=== PATIENT | female | born 1950 | race African-American/Black ===

== ENCOUNTER 2017-08-11 21:18 | Observation (INO) | payer MEDICARE, OTHER ==
[2017-08-11 22:34] LABS: CKMB 1.3 ng/mL (0-6.6); Troponin I Less than 0.010 ng/mL (< 0.028)
[2017-08-12] MEDS ORDERED: Calcium Carbonate 500 MG ChewTAB PO PRN (00:32)
[2017-08-12] MEDS ORDERED: Nitroglycerin 0.4 MG TAB (25 Tab Bottle) PO PRN (00:32)
[2017-08-12] MEDS ORDERED: Mag-Al 1200 mg/1200 mg/30 ML UDCUP PO PRN (00:32)
[2017-08-12] MEDS ORDERED: Ondansetron HCl/PF 4 MG/2 ML Vial IVP PRN (00:32)
[2017-08-12] MEDS ORDERED: Senokot 8.6 MG TAB PO PRN (00:32)
[2017-08-12] MEDS ORDERED: Ondansetron ODT 4 MG TAB PO PRN (00:32)
[2017-08-12] MEDS ORDERED: Acetaminophen 325 MG TAB PO PRN (00:32)
[2017-08-12 01:28] LABS: Troponin I Less than 0.010 ng/mL (< 0.028)
--- NOTE | 2017-08-12 01:41 | HP ---
DATE OF ADMISSION: 08/11/2017 The patient was seen and examined on 08/11/2017. CHIEF COMPLAINT: Shortness of breath. The patient is transferred from [facility] in [place]. PRIMARY CARE PHYSICIAN: Dr. Maren Stevens. PRIMARY TRIGONOMETRY TUTOR: Dr. Tang Ortiz. HISTORY OF PRESENT ILLNESS: The patient is a 67-year-old female with paroxysmal atrial fibrillation, hypertension, and heart murmur, who presented to the emergency room in [place] with shortness of shira ath that has been ongoing for last 2-3 days. The shortness of breath is progressively getting worse. It is precipitated by moderate exertion. She also is on Lasix for leg swelling mainly during eveni ngs. She denies any orthopnea or paroxysmal nocturnal dyspnea. No wheezing, chest pain, palpitation s, lightheadedness, dizziness, nausea, vomiting, diaphoresis reported. Over the past few weeks, the patient has on and off dry cough, which has more or less resolved. PAST MEDICAL HISTORY: 1. Paroxysmal atrial fibrillation secondary to Graves' disease in the past. 2. Heart murmur. 3. Hypothyroidism. PAST SURGICAL HISTORY: 1. Radioactive thyroid ablation. 2. Appendectomy. 3. Hysterectomy. 4. Tonsillectomy. ALLERGIES: Patient denies any drug allergies. CURRENT HOME MEDICATIONS: Bystolic 5 mg at bedtime, multivitamin 1 tablet daily, lisinopril 20 mg da raheel, Levothyroxine 112 mcg daily, hydralazine 25 b.i.d., Lasix 20 mg daily, calcium carbonate daily. SOCIAL HISTORY: Patient currently lives at home with her family. She denies any current use of smok ing, alcohol, or drug use. She is FULL CODE, makes her own decision with the help of her family. FAMILY HISTORY: Heart disease and diabetes on mother's side, hypertension on father's side. Dangelo cho had cardiomyopathy. REVIEW OF SYSTEMS: The following complete review of systems was negative, unless otherwise mentioned in the HPI or below: Constitutional: Weight loss or gain, ability to conduct usual activities. Sk in: Rash, itching. Eyes: Double vision, pain. ENT/Mouth: Nose bleeding, neck stiffness, pain, te nderness. Cardiovascular: Palpitations, dyspnea on exertion, orthopnea. Respiratory: Shortness of breath, wheezing, cough, hemoptysis, fever or night sweats. Gastrointestinal: Poor appetite, abdom inal pain, heartburn, nausea, vomiting, constipation, or diarrhea. Genitourinary: Urgency, frequenc y, dysuria, nocturia. Musculoskeletal: Pain, swelling. Neurologic/Psychiatric: Anxiety, depressio n. Allergy/Immunologic: Skin rash, bleeding tendency. PHYSICAL EXAMINATION: VITAL SIGNS: Temperature 97.9, respirations 20, pulse 68, blood pressure 170/79 with O2 saturation 9 9% on room air. GENERAL: A 67-year-old female in no apparent distress. No significant shortness of breath while res ting. HEENT: Head: Atraumatic, normocephalic. Sclerae are anicteric. Moist mucous membranes. No oral l esion. NECK: Supple. No JVD appreciated. No carotid bruit. LUNGS: Clear to auscultation bilaterally except for few bibasilar rales. There was scattered rhonch i. No wheezing appreciated. HEART: S1, S2 present. Regular rate and rhythm. 2/6 systolic murmur over the mitral area. No heav es or pulsation. ABDOMEN: Soft, nontender, bowel sounds present. EXTREMITIES: 2+ edema in bilateral lower extremities. No calf tenderness. SKIN: Warm and dry. LYMPH NODES: No palpable lymph nodes in the neck. PERIPHERAL VASCULAR: Radial pulses palpable bilaterally. MUSCULOSKELETAL: No joint swelling or tenderness. LABORATORY FINDINGS: D-dimer was negative at [place]. BNP was 152. Hemoglobin 11.6, hematocrit 35. 2. Troponins were negative per verbal report from the ER physician. Sodium was 141, potassium 4.4, chloride 104, bicarbonate 28, BUN 17, creatinine 1.17, total bilirubin 0.4, alkaline phosphatase 105. IMAGING: Chest x-ray at [place] showed cardiomegaly without any infiltrate or effusion. EKG by corona omalley showed sinus rhythm with no ST-T wave changes. IMPRESSION: 1. Shortness of breath on exertion ongoing for last 2-3 days. Suspected anginal equivalent versus c ongestive heart failure. 2. Paroxysmal atrial fibrillation secondary to Graves' disease in the past. The patient is currentl y in sinus rhythm. 3. Hypothyroidism. 4. Hypertension. 5. Chronic kidney disease, stage 3. 6. Chronic normochromic normocytic anemia. 7. Hyperlipidemia with cholesterol of 204, triglyceride 135 in 12/2016. PLAN: The patient will be monitored on the telemetry unit. Echocardiogram will be obtained. We tyrell l resume her home medications. Low dose aspirin will be started. We will consult Cardiology. The p milton was scheduled to get an echocardiogram as outpatient with Dr. Ortiz. Troponins have been neg ative. A D-dimer was also negative. Plan of care was discussed with the patient in detail. She stated understanding.
[2017-08-12] MEDS: Levothyroxine Sodium 112 MCG TAB PO SCH (06:12)
[2017-08-12] MEDS ORDERED: Eucerin (Mineral Oil/Petrolatum,White) 30 gm Jar TOP PRN (06:41)
[2017-08-12] MEDS ORDERED: Artificial Tears 18 DROP/0.9 ML EA EYE PRN (06:41)
[2017-08-12] MEDS ORDERED: Milk Of Magnesia 30 ML UDCUP PO PRN (06:41)
[2017-08-12] MEDS ORDERED: Diabetic Tussin 200 MG/10 ML UDCUP PO PRN (06:41)
[2017-08-12] MEDS ORDERED: Loperamide HCl 2 MG CAP PO PRN (06:41)
[2017-08-12] MEDS ORDERED: Loratadine 10 MG TAB PO PRN (06:41)
[2017-08-12] MEDS ORDERED: Sodium Chloride 0.65% Nasal 44 ML BOT EA NARE PRN (06:41)
[2017-08-12] MEDS ORDERED: hydrALAZINE 20 MG/ML VIAL SLOW IVP PRN (06:41)
[2017-08-12] MEDS ORDERED: Chloraseptic Spray 180 ml Bottle PO PRN (06:41)
[2017-08-12] MEDS ORDERED: Zolpidem Tartrate 5 MG TAB PO PRN (06:41)
[2017-08-12 07:31] LABS: #Eosinphils 0.1 thou/uL (0.0-0.7); #Lymphocytes 1.6 thou/uL (1.20-3.40); #Monocytes 0.4 thou/uL (0.11-0.59); #Neutrophils 2.9 thou/uL (1.40-6.50); %Basophils 0.5 % (0.0-1.0); %Eosinophils 2.2 % (0.0-10.0); %Lymphocytes 32.3 % (21.0-51.0); %Monocytes 7.5 % (0.0-10.0); %Neutrophils 57.6 % (42.0-75.0); Hemoglobin 10.9 g/dL (12.0-16.0); Mean Corpuscular HGB CONC 32.2 g/dL (32.0-36.0); Mean Corpuscular Hemoglobin 24.8 pg (27.0-31.0); Mean Platelet Volume 7.3 fL (7.4-10.4); Platelet Count 242 thou/uL (130-400); RBC Distribution Width 14.3 % (11.5-14.5); White Blood Cell (WBC) Count 5.1 thou/uL (4.8-10.8)
[2017-08-12 07:49] LABS: Anion Gap 10 mmol/L (10-20); BUN (Urea Nitrogen) 14 mg/dL (9.8-20.1); Calc. Creatinine Clearance 116 mL/min (70-130); Calcium 9.3 mg/dL (7.8-10.44); Carbon Dioxide 28 mmol/L (23-31); Cardiac Risk 3.2 (Less than 4.5); Chloride 105 mmol/L (98-107); Cholesterol 155 mg/dl (< 200 Desired); Estimated GFR-MDRD 82; Glucose 103 mg/dL (80-115); HDL Cholesterol 48 mg/dL (>60 Neg Risk); LDL Cholesterol, Calculated 83 mg/dL; Potassium 4.2 mmol/L (3.5-5.1); Sodium 139 mmol/L (136-145); Triglycerides 118 mg/dL (Less than 150)
[2017-08-12] MEDS ORDERED: VITAMIN D3 PO SCH (09:00)
[2017-08-12] MEDS ORDERED: CALCIUM CARBONATE PO SCH (09:00)
[2017-08-12] MEDS ORDERED: Furosemide 40 MG TAB PO SCH (09:00)
[2017-08-12] MEDS ORDERED: Non-Formulary Item 1 EACH (Multivitamin [Multi-Vitamin Daily] 1 TAB) PO SCH (09:00)
[2017-08-12] MEDS: Aspirin 325 MG TAB PO SCH (09:02)
[2017-08-12] MEDS: Calcium Carbonate + Vit D 1 TAB PO SCH (09:02)
[2017-08-12] MEDS: hydrALAZINE 25 MG TAB PO SCH ×2 (09:02→20:54)
[2017-08-12] MEDS: Lisinopril 20 MG TAB PO SCH (09:02)
[2017-08-12] MEDS: Multivit, Therapeutic 1 TAB PO SCH (09:03)
[2017-08-12] MEDS: Famotidine 20 MG TAB PO SCH ×2 (09:03→20:54)
[2017-08-12] MEDS: Furosemide 20 MG TAB PO SCH (09:03)
--- NOTE | 2017-08-12 09:36 | PDOC.PN ---
- Subjective Encounter Start Date: 08/12/17 Encounter Start Time: 07:10 -: old records requested/rev pt had one time RIVERA before admission, now she feels OK, no chest pain, Iron makes constipation, no UTI symptoms Patient seen and examined. No new complaints. No overnight events - Objective Resuscitation Status: Resuscitation Status FULL:Full Resuscitation MAR Reviewed: Yes Vital Signs & Weight: Vital Signs (12 hours) Temp Pulse Resp BP BP Pulse Ox 08/12/17 09:02 56 L 123/56 L 08/12/17 08:00 97.8 F 56 L 18 08/12/17 07:45 97.8 F 56 L 18 144/64 H 95 08/11/17 23:43 98 F 60 18 123/56 L 95 Weight Weight 246 lb 14.4 oz Result Diagrams: 08/12/17 07:12 08/12/17 07:12 Radiology Reviewed by me: Yes EKG Reviewed by me: Yes (nsr) Phys Exam - Physical Examination Constitutional: NAD HEENT: PERRLA, moist MMs, sclera anicteric Neck: no JVD, supple Respiratory: no wheezing, no rales, no rhonchi Cardiovascular: RRR, no significant murmur, no rub Gastrointestinal: soft, non-tender, no distention, positive bowel sounds Musculoskeletal: no edema, pulses present Neurological: non-focal, normal sensation, moves all 4 limbs Lymphatic: no nodes Psychiatric: normal affect, A&O x 3 Skin: no rash, normal turgor, cap refill <2 seconds Dx/Plan (1) RIVERA (dyspnea on exertion) Code(s): R06.09 - OTHER FORMS OF DYSPNEA Status: Acute (2) Dyslipidemia Code(s): E78.5 - HYPERLIPIDEMIA, UNSPECIFIED Status: Chronic (3) Hypertension Code(s): I10 - ESSENTIAL (PRIMARY) HYPERTENSION Status: Chronic (4) Hypothyroidism Code(s): E03.9 - HYPOTHYROIDISM, UNSPECIFIED Status: Chronic (5) Obesity (BMI 30-39.9) Code(s): E66.9 - OBESITY, UNSPECIFIED Status: Chronic (6) Paroxysmal atrial fibrillation Code(s): I48.0 - PAROXYSMAL ATRIAL FIBRILLATION Status: Chronic - Plan cont current plan of care, plan discussed w/ family * home medication reconciled * medication reviewed as below * symptomatic treatment * Echo pending * cardiology consulted * will defer stress test to cardiology if needed * will check ferritin for anemia * will check free T4 and T3 for low TSH. Review of Systems - Review of Systems Constitutional: negative: fever, chills, sweats, weakness, malaise, other Eyes: negative: Pain, Vision Change, Conjunctivae Inflammation, Eyelid Inflammation, Redness, Other ENT: negative: Ear Pain, Ear Discharge, Nose Pain, Nose Discharge, Nose Congestion, Mouth Pain, Mouth Swelling, Throat Pain, Throat Swelling, Other Respiratory: SOB with Excertion. negative: Cough, Dry, Shortness of Breath, Hemoptysis, Pleuritic Pain, Sputum, Wheezing Cardiovascular: negative: chest pain, palpitations, orthopnea, paroxysmal nocturnal dyspnea, edema, light headedness, other Gastrointestinal: negative: Nausea, Vomiting, Abdominal Pain, Diarrhea, Constipation, Melena, Hematochezia, Other Genitourinary: negative: Dysuria, Frequency, Incontinence, Hematuria, Retention , Other Musculoskeletal: negative: Neck Pain, Shoulder Pain, Arm Pain, Back Pain, Hand Pain, Leg Pain, Foot Pain, Other Skin: negative: Rash, Lesions, Arjun, Bruising, Other - Medications/Allergies Allergies/Adverse Reactions: Allergies Allergy/AdvReac Type Severity Reaction Status Date / Time No Known Allergies Allergy Verified 08/11/17 23:55 Medications: Current Medications Acetaminophen (Tylenol) 650 mg PO Q4H PRN PRN Reason: Headache/Fever or Pain Al Hydroxide/Mg Hydroxide (Maalox) 30 ml PO Q6H PRN PRN Reason: Heartburn or Indigestion Artificial Tears (Tears Naturale) 0 drop EA EYE PRN PRN PRN Reason: Dry Eyes Aspirin (Aspirin) 325 mg PO DAILY [facility] Last Admin: 08/12/17 09:02 Dose: 325 mg Calcium Carbonate (Tums) 1,000 mg PO Q4H PRN PRN Reason: Heartburn or Indigestion Calcium/Vitamin D (Caltrate 600 + Vit D) 2 tab PO DAILY [facility] Last Admin: 08/12/17 09:02 Dose: Not Given Famotidine (Pepcid) 20 mg PO BID [facility] Last Admin: 08/12/17 09:03 Dose: 20 mg Furosemide (Lasix) 20 mg PO DAILY [facility] Last Admin: 08/12/17 09:03 Dose: 20 mg Guaifenesin (Robitussin Sf) 200 mg PO Q4H PRN PRN Reason: Cough Hydralazine HCl (Apresoline) 10 mg SLOW IVP Q4H PRN PRN Reason: Systolic BP > 180 Hydralazine HCl (Apresoline) 25 mg PO BID [facility] Last Admin: 08/12/17 09:02 Dose: 25 mg Levothyroxine Sodium (Synthroid) 112 mcg PO 0600 [facility] Last Admin: 08/12/17 06:12 Dose: 112 mcg Lisinopril (Zestril) 20 mg PO DAILY [facility] Last Admin: 08/12/17 09:02 Dose: 20 mg Loperamide HCl (Imodium) 2 mg PO PRN PRN PRN Reason: Diarrhea/Loose Stools Loratadine (Claritin) 10 mg PO DAILYPRN PRN PRN Reason: Sinus Symptoms Magnesium Hydroxide (Milk Of Magnesium) 30 ml PO DAILYPRN PRN PRN Reason: Constipation Mineral Oil/White Petrolatum (Eucerin Cream) 0 gm TOP BIDPRN PRN PRN Reason: Dry Skin Multivitamins (Theragran) 1 tab PO DAILY [facility] Last Admin: 08/12/17 09:03 Dose: 1 tab Nebivolol (Bystolic) 5 mg PO [facility] Nitroglycerin (Nitrostat) 0.4 mg PO Q5MIN PRN PRN Reason: Chest Pain Ondansetron HCl (Zofran Odt) 4 mg PO Q6H PRN PRN Reason: Nausea/Vomiting Ondansetron HCl (Zofran) 4 mg IVP Q6H PRN PRN Reason: Nausea/Vomiting Phenol (Chloraseptic [place] 180 Ml Bot) 0 ml PO PRN PRN PRN Reason: Sore Throat Senna (Senokot) 2 tab PO HSPRN PRN PRN Reason: Constipation Sodium Chloride (Chemult Nasal [place] 0.65%) 0 ml EA NARE QIDPRN PRN PRN Reason: Nasal Congestion Sodium Chloride (Flush - Normal Saline) 10 ml IVF Q12HR [facility] Last Admin: 08/12/17 09:05 Dose: 10 ml Sodium Chloride (Flush - Normal Saline) 10 ml IVF PRN PRN PRN Reason: Saline Flush Zolpidem Tartrate (Ambien) 5 mg PO HSPRN PRN PRN Reason: Insomnia
[2017-08-12 09:39] LABS: Ferritin 209.67 ng/mL (10-291); Free T4 (Free Thyroxine) 1.46 ng/dL (0.70-1.48)
[2017-08-12] MEDS ORDERED: Ferrous Sulfate 325 MG TAB PO SCH (17:00)
--- NOTE | 2017-08-12 17:00 | CON ---
DATE OF SERVICE: 08/12/2017 REASON FOR CONSULTATION: Shortness of breath. PRIMARY ALUMNI RELATIONS COORDINATOR: Tang Ortiz M.D. HISTORY OF PRESENT ILLNESS: Mrs. Romero is a pleasant 67-year-old -[place] female who comes t o the hospital for shortness of breath. She has noticed that in the last 2-3 days she has seen incre ased shortness of breath progressively getting worse with moderate exertion. She has been using Lasi x for some leg swelling in the evenings. She denies PND, orthopnea. She has never had a heart ajzz terization in the past. She has a history of atrial fibrillation in the setting of hyperthyroidism, but hyperthyroidism Graves disease was treated successfully and she has not had recurrence ever since . Currently, she is doing better at rest. She feels just fine. She denies any chest pain, tightness o r pressures just shortness of breath with exertion. PAST MEDICAL HISTORY: 1. Atrial fibrillation in the setting of hyperthyroidism, none since this has been treated. 2. History of murmur. 3. Hypothyroidism. PAST SURGICAL HISTORY: 1. I-131 thyroid ablation. 2. Appendectomy. 3. Hysterectomy. 4. Tonsillectomy. OUTPATIENT MEDICATIONS: Include; 1. Bystolic 5 mg at bedtime. 2. Multivitamin daily. 3. Lisinopril 20 mg a day. 4. Levothyroxine 112 mcg a day. 5. Hydralazine 25 mg b.i.d. 6. Lasix 20 mg a day. 7. Calcium carbonate daily. ALLERGIES: No known drug allergies. SOCIAL HISTORY: No alcohol, tobacco or drugs. FAMILY HISTORY: Mother's side with diabetes and heart disease. Had a daughter with cardiomyopathy. REVIEW OF SYSTEMS: A 12-point review of systems was done and is all negative unless stated in the hi story of present illness. PHYSICAL EXAMINATION: VITAL SIGNS: Temperature 98.0, pulse 58, respiration rate 18, satting 94% on room air, blood pressur e 138/65. GENERAL: Awake, alert, oriented x3, in no distress. HEENT: Normocephalic, atraumatic. NECK: Supple. LUNGS: Clear. CARDIOVASCULAR: S1, S2, no S3, S4. There is a grade 2/6 systolic murmur in right upper sternal bord er. ABDOMEN: Soft. Positive bowel sounds. EXTREMITIES: Trace edema. SKIN: Warm and dry. LABORATORY WORK: Reviewed, EF of 50-55% with grade II diastolic dysfunction. Aortic valve is sclero tic but with only mild aortic insufficiency. There is moderate TR, elevated right-sided pressures. EKG was reviewed. ASSESSMENT AND PLAN: 1. Shortness of breath: New onset for the last few days. She has been having a dry cough as well. This could be a developing upper respiratory infection; however, we will rule out ischemia with a st ress test, she has never had one done before. We spoke about the possibility of doing this as an out patient during here. She would like to just get it done while we are here; I think this is reasonabl e. We will go ahead and order a nuclear adenosine SPECT and further recommendation results of SPECT. 2. We will give one dose of IV Lasix just to get some of this extra fluid out. She does have mildly elevated right-sided pressures. Thank you for letting me to participate in the care of your patient. We will follow.
--- NOTE | 2017-08-12 19:00 | NM ---
MYOCARDIAL PERFUSION SCAN 08/12/17 The patient is given 30 millicuries of technetium 99m Sestamibi. A rest only exam was performed. The left ventricle was imaged with SPECT imaging and CT attenuation. INDICATIONS: Chest pain. The left ventricle shows normal activity on the rest only study. No defect identified. Wall motion ap pears normal. Ejection fraction recorded at 57%. IMPRESSION: Negative rest only Sestamibi exam. POS: HERLINDA
[2017-08-12] MEDS ORDERED: Nebivolol HCl 5 MG TAB PO SCH (21:00)
[2017-08-13 03:42] VITALS: BP 130/61
[2017-08-13] MEDS: Levothyroxine Sodium 112 MCG TAB PO SCH (05:19)
[2017-08-13 08:29] VITALS: TEMP 98.2
[2017-08-13] MEDS: Calcium Carbonate + Vit D 1 TAB PO SCH (10:36)
[2017-08-13] MEDS: Aspirin 325 MG TAB PO SCH (10:36)
[2017-08-13] MEDS: Famotidine 20 MG TAB PO SCH (10:36)
[2017-08-13] MEDS: Multivit, Therapeutic 1 TAB PO SCH (10:37)
[2017-08-13] MEDS: Lisinopril 20 MG TAB PO SCH (10:37)
[2017-08-13] MEDS: Furosemide 20 MG TAB PO SCH (10:37)
[2017-08-13] MEDS: hydrALAZINE 25 MG TAB PO SCH (10:37)
--- NOTE | 2017-08-13 11:39 | PDOC.PN ---
- Subjective Encounter Start Date: 08/13/17 Encounter Start Time: 06:45 Patient seen and examined. No new complaints. No overnight events - Objective Resuscitation Status: Resuscitation Status FULL:Full Resuscitation MAR Reviewed: Yes Vital Signs & Weight: Vital Signs (12 hours) Temp Pulse Resp BP BP Pulse Ox 08/13/17 09:15 98.2 F 53 L 12 08/13/17 07:43 98.2 F 53 L 12 130/61 96 08/13/17 03:40 98.4 F 58 L 18 130/61 92 L Weight Weight 239 lb 6.4 oz I&O: 08/12/17 08/13/17 08/14/17 06:59 06:59 06:59 Intake Total 1160 Balance 1160 Result Diagrams: 08/12/17 07:12 08/12/17 07:12 Radiology Reviewed by me: Yes EKG Reviewed by me: Yes (nsr) Phys Exam - Physical Examination Constitutional: NAD HEENT: PERRLA, moist MMs, sclera anicteric Neck: no JVD, supple Respiratory: no wheezing, no rales, no rhonchi Cardiovascular: RRR, no significant murmur, no rub Gastrointestinal: soft, non-tender, no distention, positive bowel sounds Musculoskeletal: no edema, pulses present Neurological: non-focal, normal sensation, moves all 4 limbs Lymphatic: no nodes Psychiatric: normal affect, A&O x 3 Skin: no rash, normal turgor Dx/Plan (1) RIVERA (dyspnea on exertion) Code(s): R06.09 - OTHER FORMS OF DYSPNEA Status: Acute (2) Dyslipidemia Code(s): E78.5 - HYPERLIPIDEMIA, UNSPECIFIED Status: Chronic (3) Hypertension Code(s): I10 - ESSENTIAL (PRIMARY) HYPERTENSION Status: Chronic (4) Hypothyroidism Code(s): E03.9 - HYPOTHYROIDISM, UNSPECIFIED Status: Chronic (5) Obesity (BMI 30-39.9) Code(s): E66.9 - OBESITY, UNSPECIFIED Status: Chronic (6) Paroxysmal atrial fibrillation Code(s): I48.0 - PAROXYSMAL ATRIAL FIBRILLATION Status: Chronic - Plan cont current plan of care * medication reviewed as below * symptomatic treatment * stress test negative * discharge today. Review of Systems - Review of Systems Eyes: negative: Pain, Vision Change, Conjunctivae Inflammation, Eyelid Inflammation, Redness, Other ENT: negative: Ear Pain, Ear Discharge, Nose Pain, Nose Discharge, Nose Congestion, Mouth Pain, Mouth Swelling, Throat Pain, Throat Swelling, Other Respiratory: negative: Cough, Dry, Shortness of Breath, Hemoptysis, SOB with Excertion, Pleuritic Pain, Sputum, Wheezing Cardiovascular: negative: chest pain, palpitations, orthopnea, paroxysmal nocturnal dyspnea, edema, light headedness, other Gastrointestinal: negative: Nausea, Vomiting, Abdominal Pain, Diarrhea, Constipation, Melena, Hematochezia, Other Genitourinary: negative: Dysuria, Frequency, Incontinence, Hematuria, Retention , Other Musculoskeletal: negative: Neck Pain, Shoulder Pain, Arm Pain, Back Pain, Hand Pain, Leg Pain, Foot Pain, Other - Medications/Allergies Allergies/Adverse Reactions: Allergies Allergy/AdvReac Type Severity Reaction Status Date / Time No Known Allergies Allergy Verified 08/11/17 23:55
--- NOTE | 2017-08-13 12:01 | DIS ---
PRIMARY CARE PHYSICIAN: Dr. Maren Stevens DATE OF ADMISSION: 08/11/2017 DATE OF DISCHARGE: 08/13/2017 DISCHARGE DISPOSITION: Home. PRIMARY DISCHARGE DIAGNOSES: Dyspnea on exertion, angina equivalent, ruled out acute coronary syndr ome. SECONDARY DISCHARGE DIAGNOSES: Moderate mitral regurgitation, moderate tricuspid regurgitation, obes ity with BMI 38, paroxysmal atrial fibrillation, diastolic dysfunction, hypertension, dyslipidemia, h ypothyroidism. Microcytic anemia. PRIMARY PROCEDURE/OPERATION: None. RADIOLOGICAL INVESTIGATION: Stress test was negative. Echocardiography showed moderate mitral regur gitation and tricuspid regurgitation. SIGNIFICANT LABORATORY DATA: WBC 5.1, hemoglobin 10.9, platelet 242. Sodium 139, creatinine 0.84. Cardiac enzymes negative. LDL 83. Free T4-T3 normal. BNP 145, ferritin 209. DISCHARGE MEDICATIONS: Calcium with vitamin D 2 tablets p.o. daily, Lasix 20 mg p.o. daily, hydralaz ine 25 mg p.o. b.i.d., Synthroid 112 mcg p.o. daily, lisinopril 20 mg p.o. daily, multivitamin 1 tabl et p.o. daily, Bystolic 5 mg p.o. at bedtime. CONTRAINDICATIONS: None. CODE STATUS: FULL CODE. INPATIENT CONSULTANTS: Dr. Pollock was consulted while in hospital. TEST RESULTS PENDING ON DISCHARGE: None. ALLERGIES: No known drug allergy. DISCHARGE PLAN: Post hospital, the patient will follow up with Dr. Ortiz/Maris as instructed and p [facility] physician. HOSPITAL COURSE: A 67-year-old female who was admitted by Dr. Fawad Hernandez for dyspnea on exertion. She had only one time dyspnea on exertion. Please see his H&P for further details. Her physical exa mination was normal. 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 Her TSH was low, but her free T4 and T3 was normal. We consider her presentation to be angina e quivalent. We consulted Cardiology. Echocardiography was done which showed moderate mitral and tric uspid regurgitation. Her stress test was negative. The patient was planned for discharge today. The patient is seen and examined at bedside today. Please see my progress note from today for furthe r details.
== END 2017-08-13 10:39 | disposition home or self-care (01) ==
LOC: ERS 21:18 → 2SW 21:59
PROVIDERS: ADMIT Internal Medicine; ATTEND Internal Medicine
DX: I20.8 Other forms of angina pectoris (principal); R06.02 Shortness of breath; I11.9 Hypertensive heart disease without heart failure; I08.1 Rheumatic disorders of both mitral and tricuspid valves; I48.0 Paroxysmal atrial fibrillation; E66.9 Obesity, unspecified; E03.9 Hypothyroidism, unspecified; E78.5 Hyperlipidemia, unspecified; D64.9 Anemia, unspecified; Z68.38 Body mass index [BMI] 38.0-38.9, adult; Z79.52 Long term (current) use of systemic steroids; Z79.899 Other long term (current) drug therapy
CPT/HCPCS: 78452; 80048; 80061; 82553; 82728; 83880; 84439; 84443; 84481; 84484 ×2; 85025; 93017; 93306; 94760 ×2; 99285; A9500; G0378; 36415; A4216; J0153

== ENCOUNTER 2022-06-10 14:12 | Outpatient (CLI) | payer MEDICARE | END 2022-06-10 14:13 | disposition home or self-care (01) | LOC: BICMAMMO 14:12 | PROVIDERS: ATTEND Internal Medicine | DX: N63.11 Unspecified lump in the right breast, upper outer quadrant (principal) | CPT/HCPCS: 76642; 77066; G0279 ==

== ENCOUNTER → 2022-06-16 | Day surgery (SDC) | payer MEDICARE | END | disposition home or self-care (01) | LOC: BICULT 12:25 | PROVIDERS: ATTEND Internal Medicine | PROC: 0H9T3ZX Drainage of Right Breast, Percutaneous Approach, Diagnostic (ICD-10-PCS; principal; 2022-06-16) | PROC: 0H9T3ZX Drainage of Right Breast, Percutaneous Approach, Diagnostic (ICD-10-PCS; 2022-06-16) | DX: C50.411 Malignant neoplasm of upper-outer quadrant of right female breast (principal); Z17.1 Estrogen receptor negative status [ER-] | CPT/HCPCS: 19083; 19084; 88305; 88341; 88342; 88360; 88361 ==

== ENCOUNTER 2022-07-06 12:25 | Outpatient (CLI) | payer MEDICARE ==
[2022-07-06 14:01] LABS: Anion Gap 14 mmol/L (10-20); BUN (Urea Nitrogen) 19 mg/dL (9.8-20.1); Calc. Creatinine Clearance 0 mL/min (70-130); Calcium 9.5 mg/dL (7.8-10.44); Carbon Dioxide 27 mmol/L (23-31); Chloride 104 mmol/L (98-107); Estimated GFR 52; Glucose 91 mg/dL (83-110); Potassium 4.2 mmol/L (3.5-5.1); Sodium 141 mmol/L (136-145)
[2022-07-06 14:03] LABS: #Eosinphils 0.1 10x3/uL (0.0-0.5); #Monocytes 0.5 10x3/uL (0.0-1.1); #Neutrophils 3.4 10x3/uL (1.5-8.4); %Basophils 0.2 % (0.0-2.0); %Eosinophils 1.2 % (0.0-6.0); %Lymphocytes 29.8 % (18.0-47.0); %Monocytes 9.4 % (0.0-10.0); %Neutrophils 59.2 % (40.0-75.0); Hemoglobin 11.8 g/dL (12.0-15.5); Mean Corpuscular HGB CONC 30.5 g/dL (32.0-36.0); Mean Corpuscular Hemoglobin 24.7 pg (27.0-33.0); Mean Corpuscular Volume 81.1 fl (81.6-98.3); Mean Platelet Volume 9.8 fl (7.4-10.4); Platelet Count 343 10x3/uL (150-450); RBC Distribution Width 14.8 % (11.5-14.5); Red Blood Cell (RBC) Count 4.77 10x6/uL (3.90-5.03); White Blood Cell (WBC) Count 5.8 10x3/uL (3.5-10.5)
== END 2022-07-06 12:26 | disposition home or self-care (01) ==
LOC: LABBT 12:25
DX: Z01.818 Encounter for other preprocedural examination (principal); C50.911 Malignant neoplasm of unspecified site of right female breast
CPT/HCPCS: 71046; 80048; 85025

== ENCOUNTER 2022-07-07 08:24 | Day surgery (SDC) | payer MEDICARE, OTHER ==
[2022-07-06 13:10] VITALS: BMI 35.3
[2022-07-07] MEDS ORDERED: Acetaminophen 500 MG TAB ONE (09:04)
[2022-07-07] MEDS ORDERED: Ketorolac Tromethamine 30 MG/ML VIAL ONE (09:04)
[2022-07-07] MEDS ORDERED: Bupivacaine/Epinephrine 0.25% 30 ML VIAL ONE (13:10)
[2022-07-07] MEDS ORDERED: fentaNYL PF 100 MCG/2 ML SYRINGE ONE (13:23)
[2022-07-07] MEDS ORDERED: CEFAZOLIN 2 GM VIAL ONE (13:30)
[2022-07-07] MEDS ORDERED: Sodium Chloride 0.9% 100 ML ONE (13:30)
[2022-07-07] MEDS ORDERED: Dexamethasone 20 MG/5 ML VIAL ONE (13:38)
[2022-07-07] MEDS ORDERED: Ondansetron PF 4 MG/2 ML Vial ONE (13:38)
[2022-07-07] MEDS ORDERED: ePHEDrine Sulfate 50 MG/10 ML VIAL ONE (13:38)
[2022-07-07] MEDS ORDERED: PROPOFOL 200 MG/20 ML VIAL ONE (13:38)
[2022-07-07] MEDS ORDERED: Lidocaine 1% PF 5 ML VIAL ONE (13:38)
== END 2022-07-07 15:45 | disposition home or self-care (01) ==
LOC: SDC 08:24
PROVIDERS: ATTEND Specialist
PROC: 0JH60WZ Insertion of Totally Implantable Vascular Access Device into Chest Subcutaneous Tissue and Fascia, Open Approach (ICD-10-PCS; principal; 2022-07-07)
PROC: 02HV33Z Insertion of Infusion Device into Superior Vena Cava, Percutaneous Approach (ICD-10-PCS; 2022-07-07)
PROC: B518ZZA Fluoroscopy of Superior Vena Cava, Guidance (ICD-10-PCS; 2022-07-07)
DX: C50.911 Malignant neoplasm of unspecified site of right female breast (principal); I10 Essential (primary) hypertension; I48.91 Unspecified atrial fibrillation; E03.9 Hypothyroidism, unspecified; M19.90 Unspecified osteoarthritis, unspecified site; Z17.1 Estrogen receptor negative status [ER-]; Z79.890 Hormone replacement therapy; Z79.899 Other long term (current) drug therapy
CPT/HCPCS: 36561; 71045; C1788; J1100; J1642; J1885; J2405; J2704; J3490

== ENCOUNTER 2022-07-14 12:18 | Outpatient (CLI) | payer MEDICARE, OTHER | END 2022-07-14 12:19 | disposition home or self-care (01) | LOC: ULT 12:18 | PROVIDERS: ATTEND Internal Medicine | DX: Z51.11 Encounter for antineoplastic chemotherapy (principal); C50.411 Malignant neoplasm of upper-outer quadrant of right female breast; Z79.899 Other long term (current) drug therapy | CPT/HCPCS: 93306 ==

== ENCOUNTER 2023-01-13 10:02 | Day surgery (SDC) | payer MEDICARE, OTHER ==
[2023-01-13] MEDS ORDERED: diphenhydrAMINE 25 MG CAP PO SCH (10:15)
[2023-01-13] MEDS ORDERED: Acetaminophen 500 MG TAB PO SCH (10:15)
[2023-01-13] MEDS ORDERED: Acetaminophen 500 MG TAB ONE (11:05)
[2023-01-13] MEDS ORDERED: FLU VACC QS2023(65UP)/MF59C/PF 60 MCG/0.5 ML SYRINGE IM ONE (15:00)
[2023-01-13 15:36] VITALS: BP 119/56; TEMP 98.2
== END 2023-01-13 15:42 | disposition home or self-care (01) ==
LOC: ONC/OP 10:02
PROVIDERS: ATTEND Internal Medicine
DX: D64.9 Anemia, unspecified (principal); D69.59 Other secondary thrombocytopenia
CPT/HCPCS: 36430; 80053; 86850; 86900; 86901; 86920; P9016; J1642

== ENCOUNTER 2023-02-07 16:03 | Inpatient (IN) | payer MEDICARE, OTHER ==
[2023-02-07 18:34] LABS: Hematocrit 22.7 % (36.0-47.0); Hemoglobin 7.3 g/dL (12.0-16.0); Manual Diff?? YES; Mean Corpuscular HGB CONC 32.2 g/dL (32.0-36.0); Mean Corpuscular Hemoglobin 27.7 pg (27.0-31.0); Mean Platelet Volume 10.3 fL (7.4-10.4); Platelet Count 192 10x3/uL (130-400); RBC Distribution Width 20.3 % (11.5-14.5); Red Blood Cell (RBC) Count 2.64 mill/uL (4.20-5.40); White Blood Cell (WBC) Count 2.7 10x3/uL (4.8-10.8)
[2023-02-07 18:36] LABS: Delete Auto Diff?? YES
[2023-02-07 18:59] LABS: ALT (SGPT) 14 U/L (8-55); AST (SGOT) 21 U/L (5-34); Albumin 3.8 g/dL (3.4-4.8); Alkaline Phosphatase 79 U/L (40-110); Anion Gap 18 mmol/L (10-20); BUN (Urea Nitrogen) 31 mg/dL (9.8-20.1); Bilirubin, Total 0.6 mg/dL (0.2-1.2); Calc. Creatinine Clearance 0 mL/min (70-130); Carbon Dioxide 20 mmol/L (23-31); Chloride 105 mmol/L (98-107); Estimated GFR 14; Glucose 96 mg/dL (83-110); Potassium 4.3 mmol/L (3.5-5.1); Protein, Total 6.8 g/dL (5.8-8.1); Sodium 139 mmol/L (136-145)
[2023-02-07 19:02] LABS: Troponin I 0.044 ng/mL (< 0.028)
[2023-02-07 19:06] LABS: Anisocytosis SLIGHT = 6-15 cells HPF (0-5); Band 4 % (5-11); CellaVision Operator ID LAB.MJL; Elliptocytes SLIGHT = 2-5 cells HPF (0-1); Eosinophils 2 % (0-10); Hypochromia SLIGHT = 6-15 cells HPF (0-5); Lymphocytes 35 % (21-51); Macrocytosis SLIGHT = 6-15 cells HPF (0-5); Monocytes 23 % (0-10); Neutrophil 36 % (42-75); Ovalocytes SLIGHT = 2-5 cells HPF (0-1); Platelet Adequacy Comment Platelets Normal; Poikilocytosis MODERATE=16-30 cells HPF (0-5); Polychromasia MODERATE = 3-4 cells HPF (0-2); Schistocytes SLIGHT = 2-5 cells HPF (0-1); Total Cell Count 101
[2023-02-07 22:41] LABS: Bilirubin Negative (Negative); Blood, Urine Negative (Negative); CAUTI Indications for Culture Pelvic or flank pain; Clarity Turbid (Clear); Glucose, Urine (Dipstick) Normal (Negative); Ketone, Urine Negative (Negative); Leukocyte Negative Leu/uL (Negative); Nitrite Negative (Negative); Protein, Urine (Dipstick) 10 mg/dL (Neg-Trace); RBC/HPF 0-3 HPF (0-3); Specific Gravity, Urine 1.007 (1.002-1.036); Urobilinogen Normal mg/dL (Less than 2); WBC/HPF 0-3 HPF (0-3)
[2023-02-07 22:55] LABS: Bacteria/HPF 4+ HPF (None Seen)
[2023-02-07 22:58] LABS: Calcium Oxalate Crystals 1+ HPF (None Seen)
[2023-02-07 22:59] LABS: Urine Culture Reflex No No
[2023-02-07] MEDS ORDERED: Ondansetron PF 4 MG/2 ML Vial IVP PRN (23:15)
[2023-02-07] MEDS ORDERED: Acetaminophen 325 MG TAB PO PRN (23:15)
[2023-02-07] MEDS ORDERED: Ondansetron ODT 4 MG TAB SL PRN (23:15)
[2023-02-08 00:37] VITALS: BMI 30.2
[2023-02-08] MEDS ORDERED: Sodium Chloride 0.9% 1,000 ML IV SCH (00:45)
[2023-02-08 06:22] LABS: Hematocrit 20.1 % (36.0-47.0); Hemoglobin 6.2 g/dL (12.0-16.0); Manual Diff?? YES; Mean Corpuscular HGB CONC 30.8 g/dL (32.0-36.0); Mean Corpuscular Hemoglobin 26.6 pg (27.0-31.0); Mean Corpuscular Volume 86.3 fl (78.0-98.0); Mean Platelet Volume 9.6 fL (7.4-10.4); Platelet Count 177 10x3/uL (130-400); Red Blood Cell (RBC) Count 2.33 mill/uL (4.20-5.40); White Blood Cell (WBC) Count 1.9 10x3/uL (4.8-10.8)
[2023-02-08 06:37] LABS: Delete Auto Diff?? YES
[2023-02-08 06:43] LABS: Anion Gap 13 mmol/L (10-20); BUN (Urea Nitrogen) 26 mg/dL (9.8-20.1); Calc. Creatinine Clearance 33 mL/min (70-130); Calcium 8.5 mg/dL (7.8-10.44); Carbon Dioxide 22 mmol/L (23-31); Chloride 111 mmol/L (98-107); Estimated GFR 24; Glucose 88 mg/dL (83-110); Iron 31 ug/dL (50-170); Iron 34 ug/dL (50-170); Iron Binding Capacity, Total 211 mcg/dL (265-497); Iron Binding Capacity, Total 213 mcg/dL (265-497); Potassium 3.9 mmol/L (3.5-5.1); Sodium 142 mmol/L (136-145)
[2023-02-08 06:48] LABS: Troponin I 0.059 ng/mL (< 0.028)
[2023-02-08 07:04] LABS: Thyroid Stimulating Hormone 0.8715 uIU/mL (0.35-4.94)
[2023-02-08 08:23] LABS: Anisocytosis MODERATE=16-30 cells HPF (0-5); Band 2 % (5-11); CellaVision Operator ID LAB.GE; Eosinophils 2 % (0-10); Hypochromia SLIGHT = 6-15 cells HPF (0-5); Large Platelets 17.2 % (0-5); Lymphocytes 29 % (21-51); Macrocytosis SLIGHT = 6-15 cells HPF (0-5); Monocytes 18 % (0-10); Neutrophil 46 % (42-75); Ovalocytes SLIGHT = 2-5 cells HPF (0-1); Platelet Adequacy Comment Platelets Normal; Poikilocytosis SLIGHT = 6-15 cells HPF (0-5); Polychromasia SLIGHT = 2-3 cells HPF (0-2); Reactive Lymphocytes 2 % (0-10); Schistocytes SLIGHT = 2-5 cells HPF (0-1); Smudge Cells 11.1 %; Tear Drops SLIGHT = 2-5 cells HPF (0-1); Total Cell Count 99
[2023-02-08] MEDS ORDERED: Gabapentin 100 MG CAP PO SCH (10:15)
[2023-02-08] MEDS ORDERED: Levothyroxine Sodium 112 MCG TAB PO SCH (10:45)
[2023-02-08] MEDS: Gabapentin 100 MG CAP PO SCH ×2 (14:55→20:10)
[2023-02-08] MEDS: Sodium Chloride 0.9% 1,000 ML IV SCH (21:02)
[2023-02-09 00:11] LABS: Hematocrit 24.2 % (36.0-47.0); Hemoglobin 7.4 g/dL (12.0-16.0)
[2023-02-09] MEDS ORDERED: Levothyroxine Sodium 112 MCG TAB PO SCH (06:00)
[2023-02-09 06:12] LABS: Hematocrit 23.7 % (36.0-47.0); Hemoglobin 7.4 g/dL (12.0-16.0); Manual Diff?? YES; Mean Corpuscular HGB CONC 31.2 g/dL (32.0-36.0); Mean Corpuscular Hemoglobin 26.8 pg (27.0-31.0); Mean Corpuscular Volume 85.9 fl (78.0-98.0); Mean Platelet Volume 9.8 fL (7.4-10.4); Platelet Count 175 10x3/uL (130-400); RBC Distribution Width 19.8 % (11.5-14.5); Red Blood Cell (RBC) Count 2.76 mill/uL (4.20-5.40); White Blood Cell (WBC) Count 2.8 10x3/uL (4.8-10.8)
[2023-02-09 06:15] LABS: Delete Auto Diff?? YES
[2023-02-09 06:39] LABS: Anion Gap 10 mmol/L (10-20); BUN (Urea Nitrogen) 17 mg/dL (9.8-20.1); Calc. Creatinine Clearance 56 mL/min (70-130); Calcium 8.3 mg/dL (7.8-10.44); Carbon Dioxide 23 mmol/L (23-31); Chloride 111 mmol/L (98-107); Estimated GFR 47; Glucose 98 mg/dL (83-110); Potassium 4.2 mmol/L (3.5-5.1); Sodium 140 mmol/L (136-145)
[2023-02-09 06:45] LABS: Band 3 % (5-11); CellaVision Operator ID LAB.CLH1; Elliptocytes SLIGHT = 2-5 cells HPF (0-1); Hypochromia SLIGHT = 6-15 cells HPF (0-5); Large Platelets 5.9 % (0-5); Lymphocytes 17 % (21-51); Macrocytosis SLIGHT = 6-15 cells HPF (0-5); Monocytes 10 % (0-10); Neutrophil 67 % (42-75); Platelet Adequacy Comment Platelets Normal; Poikilocytosis SLIGHT = 6-15 cells HPF (0-5); Polychromasia SLIGHT = 2-3 cells HPF (0-2); Reactive Lymphocytes 2 % (0-10); Total Cell Count 101
[2023-02-09] MEDS: Gabapentin 100 MG CAP PO SCH (08:13)
[2023-02-09] MEDS: Sodium Chloride 0.9% 1,000 ML IV SCH (11:02)
[2023-02-09 12:18] VITALS: TEMP 98
[2023-02-09 13:13] VITALS: BP 109/53
[2023-02-11] MEDS ORDERED: FLU VACC QS2023(65UP)/MF59C/PF 60 MCG/0.5 ML SYRINGE IM ONE (09:00)
== END 2023-02-09 12:55 | disposition home or self-care (01) | DRG 683 ==
LOC: ERS 16:03 → 2SW 22:55 → OBSVTOIN 02-09 08:45
PROVIDERS: ADMIT Internal Medicine; ATTEND Internal Medicine
PROC: 30233N1 Transfusion of Nonautologous Red Blood Cells into Peripheral Vein, Percutaneous Approach (ICD-10-PCS; principal; 2023-02-08)
DX: N17.9 Acute kidney failure, unspecified (principal); I13.0 Hypertensive heart and chronic kidney disease with heart failure and stage 1 through stage 4 chronic kidney disease, or unspecified chronic kidney disease; I50.32 Chronic diastolic (congestive) heart failure; R27.0 Ataxia, unspecified; D72.819 Decreased white blood cell count, unspecified; I48.0 Paroxysmal atrial fibrillation; C50.911 Malignant neoplasm of unspecified site of right female breast; N18.30 Chronic kidney disease, stage 3 unspecified; E03.9 Hypothyroidism, unspecified; Z79.899 Other long term (current) drug therapy; Z90.710 Acquired absence of both cervix and uterus; Z90.89 Acquired absence of other organs; Z98.890 Other specified postprocedural states; D63.1 Anemia in chronic kidney disease; D64.81 Anemia due to antineoplastic chemotherapy; T45.1X5A Adverse effect of antineoplastic and immunosuppressive drugs, initial encounter; J32.0 Chronic maxillary sinusitis; D50.9 Iron deficiency anemia, unspecified
CPT/HCPCS: 36415; 36430; 70450; 70551; 71045; 76770; 76856; 80048; 80053; 81001; 82728; 83540; 83550; 83880; 84443; 84484; 85025; 86850; 86900; 86901; 93005; 96360; 96361; G0378; J7050; P9016

== ENCOUNTER 2023-03-02 13:49 | Outpatient (CLI) | payer MEDICARE, OTHER ==
[2023-03-02 15:51] LABS: #Eosinphils 0.1 10x3/uL (0.0-0.5); #Monocytes 0.5 10x3/uL (0.0-1.1); #Neutrophils 3.8 10x3/uL (1.5-8.4); %Basophils 0.4 % (0.0-2.0); %Eosinophils 1.3 % (0.0-6.0); %Lymphocytes 17.7 % (18.0-47.0); %Monocytes 9.7 % (0.0-10.0); %Neutrophils 70.7 % (40.0-75.0); Hematocrit 28.2 % (34.9-44.5); Hemoglobin 8.7 g/dL (12.0-15.5); Mean Corpuscular HGB CONC 30.9 g/dL (32.0-36.0); Mean Corpuscular Hemoglobin 27.5 pg (27.0-33.0); Mean Corpuscular Volume 89.2 fl (81.6-98.3); Mean Platelet Volume 11.2 fl (7.4-10.4); Platelet Count 276 10x3/uL (150-450); RBC Distribution Width 19.1 % (11.5-14.5); Red Blood Cell (RBC) Count 3.16 10x6/uL (3.90-5.03); White Blood Cell (WBC) Count 5.4 10x3/uL (3.5-10.5)
[2023-03-02 16:02] LABS: Anion Gap 14 mmol/L (10-20); BUN (Urea Nitrogen) 25 mg/dL (9.8-20.1); Calc. Creatinine Clearance 0 mL/min (70-130); Carbon Dioxide 27 mmol/L (23-31); Chloride 103 mmol/L (98-107); Estimated GFR 52; Glucose 102 mg/dL (83-110); Potassium 4.1 mmol/L (3.5-5.1); Sodium 140 mmol/L (136-145)
== END 2023-03-02 13:50 | disposition home or self-care (01) ==
LOC: LABBT 13:49
PROVIDERS: ATTEND Specialist
DX: Z01.818 Encounter for other preprocedural examination (principal); C50.911 Malignant neoplasm of unspecified site of right female breast
CPT/HCPCS: 71046; 80048; 85025

== ENCOUNTER 2024-04-12 11:09 | Outpatient (CLI) | payer MEDICARE, OTHER | END 2024-04-12 11:10 | disposition home or self-care (01) | LOC: BICMAMMO 11:09 | PROVIDERS: ATTEND Specialist | DX: Z12.31 Encounter for screening mammogram for malignant neoplasm of breast (principal); Z90.11 Acquired absence of right breast and nipple | CPT/HCPCS: 77063; 77067 ==